=== PATIENT | female | born 1960 | race Hispanic/Latino ===

== ENCOUNTER 2017-10-31 07:33 | Emergency (ER) | payer BC, OTHER ==
[2017-10-31 07:55] LABS: #Lymphocytes 3.5 thou/uL (1.20-3.40); #Monocytes 0.7 thou/uL (0.11-0.59); #Neutrophils 12.7 thou/uL (1.40-6.50); %Basophils 0.1 % (0.0-1.0); %Eosinophils 0.3 % (0.0-10.0); %Lymphocytes 20.5 % (21.0-51.0); %Monocytes 4.1 % (0.0-10.0); Hemoglobin 14.1 g/dL (12.0-16.0); Mean Corpuscular HGB CONC 32.7 g/dL (32.0-36.0); Mean Corpuscular Volume 88.6 fl (81.0-99.0); Mean Platelet Volume 7.3 fL (7.4-10.4); Platelet Count 305 thou/uL (130-400); RBC Distribution Width 12.4 % (11.5-14.5); Red Blood Cell (RBC) Count 4.86 mill/uL (4.20-5.40)
[2017-10-31 08:16] LABS: ALT (SGPT) 43 U/L (8-55); AST (SGOT) 39 U/L (5-34); Albumin 4.7 g/dL (3.5-5.0); Alkaline Phosphatase 104 U/L (40-150); Anion Gap 15 mmol/L (10-20); BUN (Urea Nitrogen) 17 mg/dL (9.8-20.1); Bilirubin, Total 1.2 mg/dL (0.2-1.2); Calc. Creatinine Clearance 0 mL/min (70-130); Calcium 10.3 mg/dL (7.8-10.44); Carbon Dioxide 30 mmol/L (22-29); Chloride 96 mmol/L (98-107); Estimated GFR-MDRD 64; Globulin 3.6 g/dL (2.4-3.5); Glucose 169 mg/dL (70-105); Lipase 206 U/L (8-78); Potassium 4.6 mmol/L (3.5-5.1); Protein, Total 8.3 g/dL (6.0-8.3); Sodium 136 mmol/L (136-145)
[2017-10-31 08:26] LABS: Bilirubin Negative (Negative); Blood, Urine Trace (Negative); Clarity CLEAR (Clear); Glucose, Urine (Dipstick) 250 mg/dL (Negative); Leukocyte Small (Negative); Nitrite Positive (Negative); Protein, Urine (Dipstick) Negative (Neg-Trace); Specific Gravity, Urine 1.022 (1.002-1.036); Urobilinogen 0.2 mg/dL (0.2-1.0)
[2017-10-31 08:29] LABS: Bacteria/HPF 4+ HPF (None Seen); Hyaline Casts/LPF 0-3 HYALINE CAST LPF (0-3 Hyaline); Pathc Cast-AUWi Flag 0.58 (0-2.49)
[2017-10-31 08:32] LABS: CKMB 0.3 ng/mL (0-6.6); Troponin I Less than 0.010 ng/mL (< 0.028)
[2017-10-31] MEDS ORDERED: cefTRIAXone\\ROCEPHIN 1 GM VIAL ONE (09:29)
--- NOTE | 2017-10-31 10:01 | ULT ---
RIGHT UPPER QUADRANT ULTRASOUND: 10/31/2017 HISTORY: Abdominal pain. TECHNIQUE: Multiple longitudinal and transverse images of the right upper quadrant of the abdomen are obtained u sing a Multi-Hertz curvilinear transducer. Real-time and color-flow, as well as spectral wave-form D oppler analysis is used to evaluate the right upper quadrant. FINDINGS: There is some hepatomegaly seen, with the liver measuring 18.9 cm. No evidence of hepatic parenchyma l masses or lesions seen otherwise. There are some diffuse fiber fatty changes noted in the hepatic parenchyma. Normal hepatopetal flow is seen in the portal system. The gallbladder is unremarkable with no evidence of gallstones. There is a prominent fold seen in th e gallbladder wall. No evidence of pericholecystic fluid is seen. The common bile duct is of normal size, measuring 5 mm. The visualized portions of the pancreas are unremarkable. The right kidney is unremarkable. It measures 10 cm from pole to pole with no evidence of hydronephr osis or masses. The abdominal aorta is unremarkable. The inferior vena cava is also unremarkable. IMPRESSION: Fibrofatty changes seen in the liver with some hepatomegaly; otherwise, unremarkable right upper quad rant ultrasound. POS: [facility]
== END 2017-10-31 10:08 | disposition home or self-care (01) ==
LOC: ERS 07:33
DX: N39.0 Urinary tract infection, site not specified (principal); E11.9 Type 2 diabetes mellitus without complications; E78.5 Hyperlipidemia, unspecified; I10 Essential (primary) hypertension; Z86.73 Personal history of transient ischemic attack (TIA), and cerebral infarction without residual deficits; Z79.84 Long term (current) use of oral hypoglycemic drugs
CPT/HCPCS: 36415; 36416; 76705; 80053; 81003; 81015; 82553; 83690; 84484; 85025; 87077; 87086; 87186; 93005; 96365; J0696

== ENCOUNTER 2018-03-13 15:00 | Outpatient (CLI) | payer BC | END 2018-03-13 15:01 | disposition home or self-care (01) | LOC: BICMAMMO 15:00 | PROVIDERS: ATTEND Family Medicine | DX: Z12.31 Encounter for screening mammogram for malignant neoplasm of breast (principal); R92.1 Mammographic calcification found on diagnostic imaging of breast | CPT/HCPCS: 77063; 77067 ==

== ENCOUNTER 2018-09-03 13:57 | Outpatient (CLI) | payer BC ==
--- NOTE | 2018-09-03 15:11 | CT ---
CT ABDOMEN WITH CONTRAST CT PELVIS WITH CONTRAST: DATE: 09/03/18 HISTORY: 57-year-old female with left upper quadrant pain, constipation, and nausea. COMPARISON: 03/17/04. TECHNIQUE: IV injection of iodinated contrast media: 70 mL [id number]. Oral contrast media: Administered. FINDINGS: The previously demonstrated large 11 x 10 cm cystic mass at the fundus of the uterus has decreased in size, and currently measures 5.5 x 4.5 x 5.0 cm, and is of soft tissue attenuation, consistent with a leiomyoma. The dome of the urinary bladder is broadly indented by this leiomyoma. No adnexal mass. Moderate amount of colonic stool. No colonic diverticulitis. No small bowel dilation. Normal appendix , right kidney, abdominal aorta, adrenals, spleen, pancreas, and liver (except for the possibility of mildly fatty liver). Lung bases are grossly clear. No pleural effusion, ascites, or pneumoperitoneum . No small bowel dilation. There is a small, slightly less than 1 cm, low density lesion in the upper pole parenchyma of the left kidney medially, which is new since 03/17/2004, too small to characteriz e, but statistically most likely to be a cyst. No other abnormality of the left kidney. IMPRESSION: 1. Uterine leiomyoma (fibroid). 2. Small, round, 1 cm low density in the upper pole of left kidney, too small to characterize. 3. Otherwise negative. JNR POS: [facility]
== END 2018-09-03 13:58 | disposition home or self-care (01) ==
LOC: BICCT 13:57
PROVIDERS: ATTEND Internal Medicine Gastroenterology
DX: K59.09 Other constipation (principal); R10.12 Left upper quadrant pain; R11.0 Nausea; M94.0 Chondrocostal junction syndrome [Tietze]; D25.9 Leiomyoma of uterus, unspecified; N28.89 Other specified disorders of kidney and ureter
CPT/HCPCS: 74177

== ENCOUNTER 2019-03-25 14:30 | Outpatient (CLI) | payer BC ==
--- NOTE | 2019-03-25 15:21 | MMO ---
Bilateral MAMMO Bilat Diag [facility]. CLINICAL HISTORY: Patient is 58 years old and is seen for diagnostic exam. The patient has no family history of breast cancer. The patient has no personal history of cancer. VIEWS: The views performed were: bilateral craniocaudal with tomosynthesis; bilateral mediolateral oblique with tomosynthesis; and bilateral mediolateral with tomosynthesis. FILMS COMPARED: The present examination has been compared to prior imaging studies performed at [facility] on 08/17/2015, 08/27/2016, 03/13/2018 and 03/25/2019. This study has been interpreted with the assistance of computer-aided detection. MAMMOGRAM FINDINGS: There are scattered fibroglandular densities. There is a focal asymmetry seen in the inner region of the left breast, unchanged when compared to studies dating back to 2014. There are mildly prominent ducts posterior to the left nipple. No mass or distortion is noted in the left retroareolar region. There are no suspicious masses, suspicious calcifications, or new areas of architectural distortion. IMPRESSION: THERE IS NO MAMMOGRAPHIC EVIDENCE OF MALIGNANCY. A ROUTINE FOLLOW-UP MAMMOGRAM IN 1 YEAR IS RECOMMENDED. THE RESULTS OF THIS EXAM WERE SENT TO THE PATIENT. ACR BI-RADS Category 2 - Benign finding MAMMOGRAPHY NOTE: 1. A negative mammogram report should not delay a biopsy if a dominant of clinically suspicious mass is present. 2. Approximately 10% to 15% of breast cancers are not detected by mammography. 3. Adenosis and dense breasts may obscure an underlying neoplasm. Reported by: LALO CARDONA MD Electonically Signed: [id number]
--- NOTE | 2019-03-25 15:57 | ULT ---
FOCUSED ULTRASOUND OF THE LEFT BREAST: 03/25/19 HISTORY: Single episode of nipple discharge, described as white. FINDINGS: Focused ultrasound of the left retroareolar region obtained. Images demonstrate multiple dilated duct s in the left retroareolar region extending to the nipple with no internal debris and no internal mas s. IMPRESSION: BIRADS 2: Benign Finding(s) Routine annual screening mammography (for women over age 40). Dilated ducts are seen in the left retroareolar region with no associated mass or debris. POS: OFF
== END 2019-03-25 14:31 | disposition home or self-care (01) ==
LOC: BICMAMMO 14:30
PROVIDERS: ATTEND Family Medicine
DX: N64.52 Nipple discharge (principal); R92.8 Other abnormal and inconclusive findings on diagnostic imaging of breast
CPT/HCPCS: 77066; G0279

== ENCOUNTER 2021-04-06 08:02 | Outpatient (CLI) | payer BC | END 2021-04-06 08:03 | disposition home or self-care (01) | LOC: BICMAMMO 08:02 | PROVIDERS: ATTEND Family Medicine | DX: Z12.31 Encounter for screening mammogram for malignant neoplasm of breast (principal) | CPT/HCPCS: 77063; 77067 ==

== ENCOUNTER 2021-11-07 07:46 | Emergency (ER) | payer BC ==
[2021-11-07 08:22] LABS: #Basophils 0.1 thou/uL (0.0-0.2); #Eosinphils 0.1 thou/uL (0.0-0.7); #Lymphocytes 3.3 thou/uL (1.20-3.40); #Monocytes 0.6 thou/uL (0.11-0.59); %Basophils 0.5 % (0.0-1.0); %Eosinophils 0.6 % (0.0-10.0); %Lymphocytes 29.8 % (21.0-51.0); %Monocytes 5.4 % (0.0-10.0); %Neutrophils 63.6 % (42.0-75.0); Hemoglobin 13.1 g/dL (12.0-16.0); Mean Corpuscular HGB CONC 33.8 g/dL (32.0-36.0); Mean Corpuscular Hemoglobin 29.2 pg (27.0-31.0); Mean Corpuscular Volume 86.6 fL (78.0-98.0); Mean Platelet Volume 8.5 fL (7.4-10.4); Platelet Count 250 thou/uL (130-400); RBC Distribution Width 12.5 % (11.5-14.5); Red Blood Cell (RBC) Count 4.49 mill/uL (4.20-5.40)
[2021-11-07 08:28] LABS: Actual Bicarbonate (HCO3v) 29 mEq/L (22-28); Analyzer IN Cardio ER; Base Excess 4.5 mEq/L (-2.0 to +3.0); Calcium, Ionized (venous) 1.06 mmol/L (1.16-1.32); Chloride (VBG) 94 mmol/L (98-106); Hemoglobin (Hb) 13.4 g/dL (11.7-16.0); Potassium (VBG) 5.21 mmol/L (3.70-5.30); Sodium 132.1 mmol/L (133-146); pH (venous) 7.46 (7.32-7.43)
[2021-11-07 08:45] LABS: ALT (SGPT) 71 U/L (8-55); AST (SGOT) 38 U/L (5-34); Albumin 4.4 g/dL (3.4-4.8); Alkaline Phosphatase 195 U/L (40-110); Anion Gap 18 mmol/L (10-20); BUN (Urea Nitrogen) 11 mg/dL (9.8-20.1); Bilirubin, Total 0.8 mg/dL (0.2-1.2); Calc. Creatinine Clearance 0 mL/min (70-130); Calcium 9.5 mg/dL (7.8-10.44); Carbon Dioxide 27 mmol/L (23-31); Chloride 93 mmol/L (98-107); Globulin 3.4 g/dL (2.4-3.5); Glucose 487 mg/dL (80-115); Potassium 4.9 mmol/L (3.5-5.1); Protein, Total 7.8 g/dL (5.8-8.1); Sodium 133 mmol/L (136-145)
[2021-11-07 09:16] LABS: Lipase 236 U/L (8-78); Magnesium 1.6 mg/dL (1.6-2.6)
== END 2021-11-07 11:58 | disposition home or self-care (01) ==
LOC: ERS 07:46
DX: E11.65 Type 2 diabetes mellitus with hyperglycemia (principal); R74.01 Elevation of levels of liver transaminase levels; E78.5 Hyperlipidemia, unspecified; I10 Essential (primary) hypertension
CPT/HCPCS: 36416; 80053; 82010; 82805; 83690; 83735; 85025; 96360; 96361

== ENCOUNTER 2023-04-03 07:58 | Outpatient (CLI) | payer BC | END 2023-04-03 07:59 | disposition home or self-care (01) | LOC: BICMAMMO 07:58 | PROVIDERS: ATTEND Family Medicine | DX: Z12.31 Encounter for screening mammogram for malignant neoplasm of breast (principal) | CPT/HCPCS: 77063; 77067 ==

== ENCOUNTER 2024-12-28 09:49 | Outpatient (CLI) | payer BC | END 2024-12-28 09:50 | disposition home or self-care (01) | LOC: BICMAMMO 09:49 | PROVIDERS: ATTEND Family Medicine | DX: Z12.31 Encounter for screening mammogram for malignant neoplasm of breast (principal) | CPT/HCPCS: 77063; 77067 ==